=== PATIENT | female | born 1975 | race Caucasian/White ===

== ENCOUNTER 2018-04-15 14:59 | Emergency (ER) | payer MEDICAID ==
[2018-04-15] MEDS ORDERED: Naproxen 550 mg Tab PO STA (15:37)
[2018-04-15 15:38] VITALS: BP 110/76; PULSE 67; RESP 16; TEMP 97.3; O2SAT 99; BMI 32.5
--- NOTE | 2018-04-15 16:17 | ED PDOC ---
Arrival/HPI - General Chief Complaint: Medical Clearance Time Seen by Provider: 04/15/18 15:00 Historian: Patient - History of Present Illness Narrative History of Present Illness (Text): 04/15/18 15:30 43 year old female, whose past medical history includes hypothyroidism, who presents to the Emergency department complaining of bilateral breast pain for the past 1-2 months, but increased within the last week so she presented to the Emergency department for evaluation. Patient denies fevers or any other complaints. PMD: Sarah Dela Cruz Time/Duration: 1 week (Patient states bilateral breast pain started approximately 1-2 months ago, worse this past week ) Symptom Onset: Sudden Symptom Course: Unchanged Activities at Onset: Light Past Medical History - Provider Review Nursing Documentation Reviewed: Yes - Infectious Disease Hx of Infectious Diseases: None - Reproductive Menopause: No - Cardiac Hx Cardiac Disorders: No - Pulmonary Hx Respiratory Disorders: No - Neurological Hx Neurological Disorder: No - HEENT Hx HEENT Disorder: No - Renal Hx Renal Disorder: No - Endocrine/Metabolic Hx Endocrine Disorders: Yes Hx Hypothyroidism: Yes - Hematological/Oncological Hx Blood Disorders: No - Integumentary Hx Dermatological Disorder: No - Musculoskeletal/Rheumatological Hx Musculoskeletal Disorders: No - Gastrointestinal Hx Gastrointestinal Disorders: No - Genitourinary/Gynecological Hx Genitourinary Disorders: No - Psychiatric Hx Psychophysiologic Disorder: No Hx Substance Use: No - Anesthesia Hx Anesthesia Reactions: No Hx Malignant Hyperthermia: No - Suicidal Assessment Feels Threatened In Home Enviroment: No Family/Social History - Physician Review Nursing Documentation Reviewed: Yes Family/Social History: No Known Family HX Smoking Status: Never Smoked Hx Alcohol Use: No Hx Substance Use: No Allergies/Home Meds Allergies/Adverse Reactions: Allergies No Known Allergies Allergy (Verified 02/17/16 08:51) Home Medications: Home Meds Medication Instructions Recorded Confirmed Levothyroxine [Synthroid] 1 tab PO DAILY 02/17/16 06/05/16 Review of Systems - Physician Review All systems were reviewed & negative as marked: Yes - Review of Systems Constitutional: Normal. absent: Fevers Musculoskeletal: Other (Pt notes bilateral breast pains). absent: Normal Physical Exam Vital Signs Reviewed: Yes Vital Signs Temp Pulse Resp BP Pulse Ox 04/15/18 15:21 97.3 F L 67 16 110/76 99 Temperature: Afebrile Blood Pressure: Normal Pulse: Regular Respiratory Rate: Normal Appearance: Positive for: Well-Appearing, Non-Toxic, Comfortable Pain Distress: Mild Mental Status: Positive for: Alert and Oriented X 3 - Systems Exam Head: Present: Atraumatic, Normocephalic Pupils: Present: PERRL Extroacular Muscles: Present: EOMI Conjunctiva: Present: Normal Mouth: Present: Moist Mucous Membranes Neck: Present: Normal Range of Motion Respiratory/Chest: Present: Clear to Auscultation, Good Air Exchange. No: Respiratory Distress, Accessory Muscle Use Cardiovascular: Present: Regular Rate and Rhythm, Normal S1, S2. No: Murmurs Abdomen: No: Tenderness, Distention, Peritoneal Signs Breast/Axillary: Present: Tender to Palpation (bilateral breast tenderness induration ) Back: Present: Normal Inspection Upper Extremity: Present: Normal Inspection. No: Cyanosis, Edema Lower Extremity: Present: Normal Inspection. No: Edema Neurological: Present: GCS=15, CN II-XII Intact, Speech Normal Skin: Present: Warm, Dry, Normal Color. No: Rashes Psychiatric: Present: Alert, Oriented x 3, Normal Insight, Normal Concentration Medical Decision Making ED Course and Treatment: 04/15/18 15:30 Impression: 43 year old female who presents to the Emergency department complaining of bilateral breast pain for the past 1-2 months, but increased within the last week so she presented to the Emergency department for evaluation. Differential Diagnosis included but are not limited to: Plan: -- Anaprox DS -- POC Urine Test -- Reassess and disposition Prior Visits: Notes and results from previous visits were reviewed. Progress Notes: 04/15/18 17:05 chaperoned by lois. no e/o of abscess collection infection. advised ptwill need outpt f/u and mammorgram. pt verbalizes understanidng. return precations advised. no cp. no sob. no cardipulm complaints. - Medication Orders Current Medication Orders: Discontinued Medications Naproxen (Anaprox Ds) 550 mg PO STAT STA Stop: 04/15/18 15:38 Last Admin: 04/15/18 15:55 Dose: 550 mg - Scribe Statement The provider has reviewed the documentation as recorded by the Olivaibe Martha Carlson All medical record entries made by the Olivaibangie were at my direction and personally dictated by me. I have reviewed the chart and agree that the record accurately reflects my personal performance of the history, physical exam, medical decision making, and the department course for this patient. I have also personally directed, reviewed, and agree with the discharge instructions and disposition. Disposition/Present on Arrival - Present on Arrival Any Indicators Present on Arrival: No History of DVT/PE: No History of Uncontrolled Diabetes: No Urinary Catheter: No History of Decub. Ulcer: No History Surgical Site Infection Following: None - Disposition Have Diagnosis and Disposition been Completed?: Yes Diagnosis: Breast pain Disposition: HOME/ ROUTINE Disposition Time: 15:20 Condition: STABLE Discharge Instructions (ExitCare): Common Breast Problems Additional Instructions: follow up with your doctor/clinic. you will need managmenet as an outpatient, including mammogram. possible biopsy. return with any worsening. Prescriptions: RX: Naproxen [Naprosyn] 500 mg PO BID PRN #14 tablet PRN Reason: Pain, Mild (1-3) Forms: [facility] ([facility])
== END 2018-04-15 15:58 | disposition home or self-care (01) ==
LOC: ED 14:59
DX: N64.4 Mastodynia (principal)